=== PATIENT | male | born 1950 | race Caucasian/White ===

== ENCOUNTER 2017-08-02 20:54 | Inpatient (IN) | payer MEDICARE, OTHER ==
[~2017-08-02] VITALS: Ht 182.9 cm; Wt 133.5 kg
--- NOTE | ~2017-08-02 | CN ---
Consultation Report [facility] [address] [place]. [address] NAME: BERENICE CASTAÑEDA : 48 STATUS : ADM IN [facility]#: [id number] AGE: 66 ADM/REG DATE : 08/03/17 MR#: [id number] REPORT SERV DATE: 08/03/17 DICTATED BY: LILLIAM JOSEPH DATE: 08/03/17 REPORT STATUS : Draft TRANSCRIBED BY: MODL DATE: 08/03/17 CARDIOLOGY CONSULT DATE OF CONSULTATION: REFERRING REASON: Sepsis and elevated troponin. HISTORY OF PRESENT ILLNESS: This is a pleasant 66-year-old obese white gentleman, who was transferred yesterday from [facility], where he has been one day for abdominal discomfort, anorexia, and one week lasting fever and chills. He was found to be hypotensive with acute kidney injury and elevated troponin. He was transferred to IMCU at [facility]. The patient has reported low blood pressure outside. I had the opportunity to interview the patient and his . Reportedly, he has been not feeling well for last two weeks. He has been suffering with chronic abdominal pain and anorexia. He was waiting for cholecystectomy, which was scheduled for yesterday. In the meantime, he ended up at the outside hospital. He was complaining of one week lasting fever, chills, and general malaise. No chest pain. No palpitation or significant dyspnea. He continues to smoke two packs a day. He has underlying COPD. The patient denies any previous cardiac problems. He is however a poor historian. His troponin peaked up to 3.8 last night and now is decreasing to 3.4. Initially, he was in normal sinus rhythm, but he went early this morning to atrial fibrillation with rapid ventricular response. Blood pressure now is 100 to 110 systolic. He has not required pressor. His procalcitonin is elevated up to 1.9. His blood cultures from [place] revealed clusters of gram-positive cocci. Infectious Disease doctor has not seen the patient yet. The patient reportedly has been active until recently. He denied any recent chest pain, palpitation, or syncope. REVIEW OF SYSTEMS: The rest of review of systems negative. PAST MEDICAL HISTORY: 1. COPD. 2. Smoking dependency. 3. History of abdominal aortic repair by Dr. Narvaez in 2014 at [place] for possible rupture. 4. Hypothyroidism, on treatment. 5. Obesity. 6. Remote history of prostate cancer. 7. Chronic right bundle-branch block on electrocardiogram. 8. Chronic abdominal pain with cholelithiasis. ALLERGIES: PENICILLIN AND TERRAMYCIN. Consultation Report [facility] [address] [place]. [address] NAME: BERENICE CASTAÑEDA : 48 STATUS : ADM IN PAT#: [id number] AGE: 66 ADM/REG DATE : 08/03/17 MR#: [id number] REPORT SERV DATE: 08/03/17 DICTATED BY: LILLIAM JOSEPH DATE: 08/03/17 REPORT STATUS : Draft TRANSCRIBED BY: GEORGES DATE: 08/03/17 HOME MEDICATIONS: Albuterol, aspirin 325 mg once a day, benazepril 20 mg once a day, Coenzyme Q10, Lasix 40 mg once a day, Synthroid 50 mcg once a day, and fish oil. 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 He is . He has been smoking many years, currently two packs a day. Denies drinking alcohol daily or using street drugs. FAMILY HISTORY: Remarkable for his brother having DC in his late 60s. PHYSICAL EXAMINATION: GENERAL: No acute distress. VITAL SIGNS: Blood pressure is 110/60, heart rate 119, irregularly irregular, atrial fibrillation. HEENT: Pupils reactive to light and accommodation. Moist mucosa membrane. NECK: No JVD. Normal carotid upstroke. No carotid bruits. LUNGS: Decreased breath sounds, but no crackles. COR: Normal S1, S2. No S3 or S4. No significant rub or murmurs. Soft systolic murmur, 2/6 at the right upper sternal border noted. ABDOMEN: Obese, distended with some mild palpation to tenderness in the right upper quadrant. Lower extremity trace edema around the ankle with decreased pedal pulses bilaterally. EXT: No edema. Pedal pulses strong and equal bilaterally. SKIN: Warm with normal turgor. MS: No kyphosis. NEURO/PSY: Alert and oriented. Nonfocal. DATA: CBC remarkable for hemoglobin 10.9 with MCV 88. White blood cell count is 8000 after treatment with antibiotics at outside institution. Potassium was 3.3 with sodium increasing from 129 to 130, creatinine 1.6, BUN of 49, procalcitonin elevated 1.9. Troponin peaked at 3.8, decreasing to 3.4 currently. Initial electrocardiogram revealed normal sinus rhythm with occasional PVC and signs of LVH and incomplete right bundle-branch block. Earlier today, he went to atrial fibrillation with rapid ventricular response and echocardiogram today revealed mild decrease in systolic function, EF 45% with small inferior hypokinesis, mild LVH, and dilated left atrium, moderate aortic valve stenosis also. Elevated right atrial and central venous pressure are also noted. ASSESSMENT AND PLAN: 1. Gram-positive cocci bacteremia with fever, chills, hypotension, sepsis. 2. Demand ischemia/type 2 myocardial infarction. 3. Paroxysmal atrial fibrillation. 4. Chronic obstructive pulmonary disease. 5. Hyponatremia. 6. Hypokalemia. 7. Anemia. We will ask infectious disease doctors to see him for evaluation of his sepsis and for Consultation Report [address] [place]. [address] NAME: BERENICE CASTAÑEDA : 48 STATUS : ADM IN [facility]#: [id number] AGE: 66 ADM/REG DATE : 08/03/17 MR#: [id number] REPORT SERV DATE: 08/03/17 DICTATED BY: LILLIAM JOSEPH DATE: 08/03/17 REPORT STATUS : Draft TRANSCRIBED BY: GEORGES DATE: 08/03/17 appropriate treatment. He currently denies any chest pain. We will start him on aspirin, low dose of beta oh when his blood pressure will tolerate it and statin. His electrolytes will need to be replaced. When he will be stable, we will proceed with coronary arteriogram while his blood pressure now is decreasing. We will start him on intravenous amiodarone in the attempt to convert him back to sinus rhythm. He is already on intravenous heparin. We will follow the patient with you. OJL/GEORGES Lilliam Joseph M.D. / [id number] CC: Be Fuller M.D.
--- NOTE | ~2017-08-02 | DS ---
Discharge Summary [facility] [facility] [place]. [address] NAME: BERENICE CASTAÑEDA : 48 STATUS : ADM IN [facility]#: [id number] AGE: 66 ADM/REG DATE : 08/03/17 MR#: [id number] REPORT SERV DATE: 08/09/17 DICTATED BY: BÁRBARA BELLA DATE: 08/08/17 REPORT STATUS : Draft TRANSCRIBED BY: MODL DATE: 08/08/17 ADMISSION DATE: 08/03/2017 DISCHARGE DATE: REASON FOR ADMISSION: Sepsis, status post septic shock. SECONDARY DIAGNOSES: Acute kidney injury demand ischemia, coronary artery disease, encephalopathy, atrial fibrillation, RVR, and chronic obstructive pulmonary disease. PRESENT ILLNESS: Please see Dr. Tenorio's dictation from 08/03/2017. HOSPITAL COURSE: Admitted for sepsis. There was a concern for gram-positive cocci in clusters, these were found to be contaminant. Repeat blood cultures were all negative. CT showed no active pneumonia. There was, however, some thickening of the gallbladder wall and some concern about cholecystitis as a source of his sepsis syndrome. He was seen also by Cardiology regarding positive troponin and found to have high-grade stenosis of the ramus intermedius, but no other intervenable lesions and the non-STEMI itself was felt to be from a demand ischemia. DICTATION ENDS HERE JACOBO/GEORGES Bárbara Bella M.D. / [id number] CC: Bárbara Bella M.D.
--- NOTE | ~2017-08-02 | TEE ---
Transesophageal Echocardiogram [facility] [address] [place]. [address] NAME: BERENICE CASTAÑEDA : 48 STATUS : ADM IN [facility]#: [id number] AGE: 66 ADM/REG DATE : 08/03/17 MR#: [id number] REPORT SERV DATE: 08/09/17 DICTATED BY: DATE: REPORT STATUS : Draft TRANSCRIBED BY: MODL DATE: 08/09/17 CHIEF COMPLAINT/REASON FOR STUDY: Atrial fibrillation. Written informed consent obtained. Please see chart for documentation. PROCEDURE: With the assistance of my Anesthesia colleagues, Mr. Castañeda was sedated for the procedure. The transesophageal probe was placed with one attempt without complications. Salient 2D, 3D, spectral and color Doppler imaging was obtained. Following the procedure, the transesophageal probe was withdrawn. There were no complications. 1. The left ventricular systolic function is mildly decreased in a global manner with a visually estimated ejection fraction of 45% to 50%. 2. The right ventricle is normal in size and systolic function. 3. The left atrium is dilated. There was no evidence of left atrial thrombus. 4. The left atrial appendage. Was interrogated at multiple levels and depths. There was no evidence of left atrial appendage thrombus. 5. The right atrium was normal in size. There was no evidence of right atrial thrombus. 6. The mitral valve was degenerated. There was mitral annular calcification. There is a 1.3 cm mobile echodensity on P3 leaflet consistent with infective endocarditis. There was associated mild mitral regurgitation noted. 7. The tricuspid valve was normal and open normally. There was mild tricuspid valvular regurgitation. 8. The pulmonary valve was structurally normal. There was no evidence of significant pulmonary valvular regurgitation. 9. 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 There was at least mild aortic valve stenosis. The gradient was not measured. There are small mobile echo densities on the aortic valve likely consistent with infective endocarditis. 10.There was a large left-sided pleural effusion noted. 11.The thoracic aorta was interrogated which demonstrated severe atherosclerotic plaque in the ascending aorta and aortic arch. IMPRESSION: 1. Mildly decreased left ventricular systolic function with a visually estimated ejection fraction of 45% to 50%. 2. Mitral valve, pechanga mitral valve endocarditis. 3. Aortic valve homograft with likely endocarditis and at least mild aortic stenosis. There was mild aortic valve regurgitation. 4. Large pleural effusion. 5. Severe atherosclerotic plaquing of the thoracic aorta. These findings were discussed with the referring physician, Dr. Johanna Eli at the bedside. GIOVANY/GEORGES Anila Kothari Transesophageal Echocardiogram [address] [address] NAME: BERENICE CASTAÑEDA : 48 STATUS : ADM IN [facility]#: [id number] AGE: 66 ADM/REG DATE : 08/03/17 MR#: [id number] REPORT SERV DATE: 08/09/17 DICTATED BY: DATE: REPORT STATUS : Draft TRANSCRIBED BY: GEORGES DATE: 08/09/17 Jeanne Cat / [id number] CC: Paul Painting M.D.
--- NOTE | ~2017-08-02 | DS ---
Discharge Summary [facility] [address] [place]. 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 Atrial fibrillation. SECONDARY DIAGNOSES: Chronic obstructive pulmonary disease with asthma exacerbation, hypertension, multiple focal strokes due to endocarditis, carotid stenosis, anasarca, chronic cholecystitis. PRESENT ILLNESS: Please see dictation, 08/03/2017. HOSPITAL COURSE: Please see interim summary on 08/07/2017. The patient was not found in fact to not be septic from cholecystitis. His blood culture positivity was actually Staphylococcus lugdunensis while transthoracic echocardiogram was unremarkable. PANKAJ done for further evaluation of the valve and for possible DC cardioversion revealed vegetations on the mitral valve. Further information from [facility] had revealed also the patient had an abnormal CT of the brain. MRI in fact revealed multifocal strokes of varying age. Further workup for that actually revealed a carotid stenosis. The patient meanwhile had actually done little well with his edema. He had diuresed 31 pounds of fluid off a single day and remained negative, that the stasis dermatitis had improved markedly. No further evidence of cellulitis on Ancef therapy. Medications were adjusted and COPD was doing much better as well. The patient actually was ambulating and demanded discharge. We talked with Neurology, Infectious Disease, and with Cardiology, they said that discharge home with the home IV antibiotics may in fact be the best course of action. However, close followup for his multiple issues would be essential. Follow up was arranged with Dr. Esteban in a week and Dr. Narvaez in a month for the carotid stenosis, Dr. Brian in three weeks, and Dr. Eli in four weeks. Eliquis had started, but put on hold due to one of these strokes have been some degree of hemorrhagic conversion. He will restart on 5 mg b.i.d. in a week. He was however, continue daily aspirin, Lipitor 40 at bedtime, amiodarone 200 daily for the atrial fibrillation, Ancef 2 g q.8 hours for 33 additional days, CoQ10, [place]-3 fatty acids, guaifenesin, Synthroid, magnesium, potassium supplements, multivitamin, Toprol-XL, Spiriva, Symbicort, Demadex, prednisone taper, albuterol p.r.n. He was instructed in no uncertain terms not to smoke. Activity otherwise as tolerated. Low salt, low fat, low calorie diet was recommended. Greater than 30 minutes was spent in the care of this patient's discharge planning on discharge day. JACOBO/GEORGES Discharge Summary [address] [address] NAME: BERENICE CASTAÑEDA : 48 STATUS : DIS IN PAT#: [id number] AGE: 66 ADM/REG DATE : 08/03/17 MR#: [id number] REPORT SERV DATE: 08/14/17 DICTATED BY: BÁRBARA BELLA DATE: 08/11/17 REPORT STATUS : Draft TRANSCRIBED BY: GEORGES DATE: 08/11/17 Bárbara Bella M.D. / [id number] CC: Jeanne George M.D. Hal Hill, M.D. Sachin V Phade, M.D. CRAIG STEVEN SWAFFORD, MD
--- NOTE | ~2017-08-02 | HP ---
History And Physical [place] [address] [facility] [place]. [address] NAME: BERENICE CASTAÑEDA : 48 STATUS : ADM IN [facility]#: [id number] AGE: 66 ADM/REG DATE : 08/03/17 MR#: [id number] REPORT SERV DATE: 08/03/17 DICTATED BY: CHASE CAMPBELL DATE: 08/03/17 REPORT STATUS : Draft TRANSCRIBED BY: MODL DATE: 08/03/17 DATE OF ADMISSION: 08/03/2017 CHIEF COMPLAINT: This is a patient I had accepted in transfer from [facility] after speaking with Dr. Esteban there. Briefly, according to Dr. Esteban, the patient had presented there for generalized malaise and loss of appetite. He then went on to have slight mental status changes along with an elevated troponin level initially 0.29 which went on to be 0.89. Subsequently, he started having hypotension, and laboratory data showed a creatinine initially of 2.0 with fluids it went down to 1.7. CT scan of his abdomen and pelvis showed no cholelithiasis, but there was thickening of the gallbladder wall. Chest x-ray was negative. CT of the head was negative. EKG showed sinus bradycardia without any ST-T changes. His procalcitonin by now had become 3.19 and he had a lactate of 8.0. Despite fluid administration the patient continued to be slightly hypotensive and given the fact that his troponin was rising Dr. Esteban felt he needs to be seen by a pharmacist technician or evaluated here as they do not have one there. The patient was accepted in transfer from [facility] to [facility]. Prior to his transfer, his vital signs showed a heart rate of 79, respirations 22 a minute, blood pressure immediately before transfer was 104/55, oxygen saturations were 94% on 2 L, and his temperature was 98.5. At the time of my evaluation here, Mr. Castañeda had some mild encephalopathy, but he was able to answer questions and follow commands. However, he appeared to be quite lethargic. He denied any chest pain or palpitations. He did not have orthopnea. He did not have any cough or any sputum production according to the , and they also denied any hemoptysis, night sweats, or weight loss during the recent past. No history of recent falls or loss of consciousness. They denied any fevers, chills, nausea, vomiting, or diarrhea. No bleeding from anywhere. No other history of recent travel or exposures other than those mentioned above. According to the , the situation has been going on for a couple of months at least and they have been evaluating him for gallbladder disease. He was supposed to get a HIDA scan today while there, but unfortunately he took a turn for the worse. He says in the last two days he has had profound malaise and loss of appetite, and then started having altered mental status and was taken to the hospital there. 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 SOCIAL HISTORY: He does not smoke, drink, or use recreational drugs at this time. FAMILY HISTORY: Noncontributory. MEDICATIONS: His medications at home were reviewed by me in the chart today and reordered by me. REVIEW OF SYSTEMS: As in history of present illness. All other systems were reviewed in detail and are quite History And Physical [address] [address] NAME: BERENICE CASTAÑEDA : 48 STATUS : ADM IN [facility]#: [id number] AGE: 66 ADM/REG DATE : 08/03/17 MR#: [id number] REPORT SERV DATE: 08/03/17 DICTATED BY: CHSAE CAMPBELL DATE: 08/03/17 REPORT STATUS : Draft TRANSCRIBED BY: GEORGES DATE: 08/03/17 unremarkable. PHYSICAL EXAMINATION: GENERAL: This is a pleasant 66-year-old not in any acute distress at this time. HEENT: His head is atraumatic and normocephalic. He is alert, awake, and oriented, but still lethargic and mildly encephalopathic. His pupils were equal, reacting to light and accommodating. External ocular muscles were intact. Membranes were moist and pink. Sclerae are nonicteric. NECK: Supple with no jugular venous distention, lymphadenopathy, or thyromegaly. LUNGS: Clear to auscultation with no wheezes, rubs, or crackles. There was an ejection systolic murmur, otherwise with normal rate and rhythm. ABDOMEN: Soft and nontender. Bowel sounds are present. EXTREMITIES: No cyanosis, clubbing, or edema. NEURO: Grossly intact, although he is mildly encephalopathic. He was able to move all four extremities. VITAL SIGNS: His temperature today upon arrival here was 98.8, pulse 71, respirations 36 a minute and blood pressure was 108/56. Oxygen saturations were 96% on 2 L via nasal cannula. LABORATORY DATA: Laboratory data and other information that accompanied the patient from [facility] was reviewed by me in the chart today. IMPRESSION: 1. Sepsis. 2. Septic shock. 3. Elevated troponin. 4. Elevated bilirubin. 5. Abnormal CT scan of the abdomen and pelvis. 6. Acute kidney injury. 7. Chronic obstructive pulmonary disease. 8. Hypothyroidism. PLAN: We will admit Mr. Castañeda to the Medical Intermediate Care Unit for close monitoring. After cultures are drawn here, we will start him on broad-spectrum IV antibiotics. We will start him on cefepime, gentamicin, and vancomycin. We will check his cortisol level along with fresh CBC, CMP, and procalcitonin and lactate, and start him on hydrocortisone replacement therapy, we may discontinue this based on the results. We will also start him on fluid boluses per sepsis protocol and monitor blood pressures closely. He is holding his own for now and I do not think he needs intravenous pressors at this time, but should his mean arterial pressure drop below 65, we may consider that. We will go ahead and follow serial troponins to rule out acute coronary event, but we will get an echocardiogram and consult Cardiology Service in the morning. This may be as a result of his sepsis or demand ischemia as well. Meanwhile, we will check his TSH and continue replacement therapy at this time. We will also place him on low-molecular weight heparin for DVT prophylaxis while here. Please see today's orders for all the details. I have discussed the above plans with the patient and his . Questions were answered and she is agreeable to the above recommendations. History And Physical [address] [place]. [address] NAME: BERENICE CASTAÑEDA : 48 STATUS : ADM IN [facility]#: [id number] AGE: 66 ADM/REG DATE : 08/03/17 MR#: [id number] REPORT SERV DATE: 08/03/17 DICTATED BY: CHASE CAMPBELL DATE: 08/03/17 REPORT STATUS : Draft TRANSCRIBED BY: MODSam DATE: 08/03/17 Total critical care time spent with the patient and the family was 45 minutes. /GEORGES Chase Campbell M.D. / [id number] CC: Be Fuller M.D.
--- NOTE | ~2017-08-02 | IDS ---
Interim Discharge Summary [facility] [address] [place]. [address] NAME: BERENICE CASTAÑEDA : 48 STATUS : ADM IN [facility]#: [id number] AGE: 66 ADM/REG DATE : 08/03/17 MR#: [id number] REPORT SERV DATE: 08/07/17 DICTATED BY: KAIN TUCKER II DATE: 08/07/17 REPORT STATUS : Draft TRANSCRIBED BY: MODL DATE: 08/07/17 ADMISSION DATE: 08/03/2017 DISCHARGE DATE: DATE OF INTERIM: 08/07/2017. INTERIM DIAGNOSES: 1. Sepsis syndrome, of unclear etiology. 2. Thrombocytopenia secondary to sepsis. 3. Acute kidney injury. 4. Demand ischemia. 5. Atrial fibrillation with rapid ventricular response. 6. Metabolic encephalopathy. 7. Suspicious lung nodules. 8. Morbid obesity. 9. 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 10.Chronic obstructive pulmonary disease. CONSULTANTS: 1. Dr. Vic Brian with Infectious Disease. 2. Dr. Eli, with Cardiology. PROCEDURES: Left heart cath showing diffuse moderate plaquing with no intervenable coronary artery disease. There was a high-grade stenosis of a branch of the ramus intermedius which is too small to intervene upon. Otherwise, no occlusive disease. Low normal EF of 45% to 50%. Borderline [id number] elevated left ventricular end-diastolic pressure of 22 to 24. BRIEF HISTORY OF PRESENT ILLNESS: The patient is a 66-year-old male with the above history who presented to [facility] in transfer from [facility] due to elevated troponin in the setting of sepsis. For detailed history and physical examination, please see Dr. Hill's note from 08/03/2017. HOSPITAL COURSE: Regarding the patient's sepsis syndrome, he had a significant fever and elevated procalcitonin of 3.19 at [facility] with a lactic acid of 8. Here, the patient was placed on cefepime and vancomycin and blood cultures had apparently grown out 2/2 gram-positive cocci in clusters from [facility]. Dr. Brian was involved and followed up the blood cultures for probable contaminants. CT of the chest did not show any evidence of pneumonia or infection. It did show a 14 mm and 7 mm pulmonary nodule that were concerning and recommendation for possible followup PET as an outpatient was recommended by Radiology. CT at [facility] of the abdomen and pelvis apparently showed no cholelithiasis, but some thickening of the gallbladder wall. LFTs here have been fairly unremarkable, and the patient has no symptoms of abdominal discomfort. His sepsis syndrome has completely resolved, and Dr. Brian has taken off the vancomycin and has recommended IV antibiotics through tomorrow at which point he can switch to oral therapy under the presumption of treating cholecystitis. A HIDA scan is deferred at this time as the patient was already Interim Discharge Summary [address] [address] NAME: BERENICE CASTAÑEDA : 48 STATUS : ADM IN PAT#: [id number] AGE: 66 ADM/REG DATE : 08/03/17 MR#: [id number] REPORT SERV DATE: 08/07/17 DICTATED BY: KAIN TUCKER II DATE: 08/07/17 REPORT STATUS : Draft TRANSCRIBED BY: GEORGES DATE: 08/07/17 previously scheduled to get a cholecystectomy by a surgeon in [facility], so we will likely let the patient go tomorrow with oral antibiotics and follow up in [facility] for lap alecia. Regarding the patient's demand ischemia, his troponin actually went up to 3.86. The patient was placed on heparin drip. An echocardiogram showed mildly decreased LVEF of 45% to 50%, small inferior basilar wall motion abnormality, mild left ventricular hypertrophy, dilated left atrium, and mild aortic stenosis. Over the weekend, the patient improved and today the patient underwent cardiac cath with the above-mentioned results. Recommendations are medical management. Otherwise, the patient also had an HEIDI with a creatinine 1.66 and currently has come down to 0.76. The patient was in atrial fibrillation with RVR in the IMCU initially and was placed on amiodarone drip, currently down to metoprolol and amiodarone orally. He had some likely sepsis-related thrombocytopenia with a platelet count of 67 on admission which has since come up to 241. Overall, the patient appears quite stable and hopefully will be ready for discharge tomorrow if okay with all other consultants and antibiotics arranged. Of note, one of my colleagues will take over starting tomorrow. LEYLA Kain Tucker II, MD / [id number] CC: Kain Tucker II, MD
--- NOTE | ~2017-08-02 | CN ---
Consultation Report [facility] [address] [place]. [address] NAME: BERENICE CASTAÑEDA : 48 STATUS : ADM IN [facility]#: [id number] AGE: 66 ADM/REG DATE : 08/03/17 MR#: [id number] REPORT SERV DATE: 08/08/17 DICTATED BY: PAULA KABA DATE: 08/08/17 REPORT STATUS : Draft TRANSCRIBED BY: MODL DATE: 08/08/17 CONSULTATION DATE OF CONSULTATION: 08/08/2017 REASON FOR CONSULTATION: Gallbladder as possible source of sepsis. HISTORY OF PRESENT ILLNESS: Mr. Castañeda is a 66-year-old gentleman who was evaluated by my partner, Dr. Jin Esteban in [facility] for cholelithiasis about one month ago. While he did have stones, there was no evidence of cholecystitis. No wall thickening on the ultrasound and white counts were always normal. The patient was transferred to [facility] due to concern of sepsis and hypotension, and he had some cardiac symptoms. He was found during hospitalization on a cardiac cath to have demand ischemia, but no interventionable lesion, and therefore, was started on medical management being Eliquis. Please see Dr. Tenorio's dictation from 08/03/2017 for past medical history, past surgical history, allergies, medications, social history, family history. REVIEW OF SYSTEMS: As stated in the HPI, otherwise, negative. PHYSICAL EXAMINATION: VITAL SIGNS: Temperature 98.0, heart rate 101, blood pressure 124/63. GENERAL: Alert, obese male, in no acute distress. HEENT: Normocephalic, atraumatic. EOMI. PERRLA. Oropharynx is clear. NECK: Supple. No lymphadenopathy. Clear to auscultation bilaterally. HEART: Distant, but no murmur, gallop, or rub. ABDOMEN: Obese, nontender throughout. NEUROLOGIC: Moves all extremities well. Cranial nerves 2 through 12 intact. No rashes. LABORATORY DATA: Currently, his white count is 9.4, H and H 9.9 and 29.1, platelets of 265, electrolytes within normal range with a creatinine of 0.79. Please see Dr. Esteban's dictations for outpatient ultrasound. ASSESSMENT: Cholelithiasis without evidence of cholecystitis with demand ischemia. PLAN: Based on these findings, the patient is not a surgical candidate. I would consider a cholecystostomy tube in the future should he have signs of cholecystitis, which would be an elevated white count, fever, and either thickening of the gallbladder wall or pericholecystic fluid on ultrasound. I will communicate this with my partner, Dr. Esteban. He will be happy to see the patient in followup and I am in agreement with discharge tomorrow. It is my pleasure participating in the care of your patient. Consultation Report [address] [address] NAME: BERENICE CASTAÑEDA : 48 STATUS : ADM IN [facility]#: [id number] AGE: 66 ADM/REG DATE : 08/03/17 MR#: [id number] REPORT SERV DATE: 08/08/17 DICTATED BY: PAULA KABA DATE: 08/08/17 REPORT STATUS : Draft TRANSCRIBED BY: GEORGES DATE: 08/08/17 KARISSA/GEORGES Paula Kaba M.D. / [id number] CC: Jeanne George MD
--- NOTE | ~2017-08-02 | CN ---
Consultation Report [facility] [address] [place]. [address] NAME: BERENICE CASTAÑEDA : 48 STATUS : ADM IN PAT#: [id number] AGE: 66 ADM/REG DATE : 08/03/17 MR#: [id number] REPORT SERV DATE: 08/05/17 DICTATED BY: SELVIN BRIAN DATE: 08/04/17 REPORT STATUS : Draft TRANSCRIBED BY: MODL DATE: 08/04/17 INFECTIOUS DISEASE CONSULTATION DATE OF CONSULTATION: 08/04/2017 REASON FOR CONSULTATION: Possible sepsis and positive blood cultures. HISTORY OF PRESENT ILLNESS: This is a 66-year-old man with a past medical history of obesity; ruptured aneurysm, status post an aortic endograft repair by Dr. Narvaez; COPD; and hypothyroidism. He also has a remote history of prostate cancer and chronic tobacco abuse. The abdominal aortic repair was in 2014. Apparently for some years, he says he has had episodic right upper quadrant abdominal pain. These symptoms have worsened over the past many months and he had undergone evaluation as an outpatient including by a surgeon for a possible chronic cholecystitis. He had been seen 1 month ago and scheduled for a right upper quadrant ultrasound and possible laparoscopic cholecystectomy. However, over the past week or so, he had developed just some episodic fevers and chills, and confusion and just generally was feeling poorly. He had an ultrasound which from the records we have, apparently showed no evidence of any acute abnormalities of the gallbladder. Admission was discussed, but the patient declined. He continued to feel poorly though, and then was brought back to the hospital the following day and a CT scan of the abdomen was performed without IV contrast, which again showed no acute findings and specifically the gallbladder was unremarkable. He does have nephrolithiasis. Initial workup on August 02 also showed a normal white blood cell count, creatinine of 1.9, and bilirubin of 1.3. Blood cultures were done. He was started on antibiotics with Levaquin and Flagyl. He developed worsening creatinine up to 2.0 and had a bilirubin of 1.7. Blood cultures returned positive for gram-positive cocci in clusters, and because of the renal issues and the positive blood cultures, he was transferred here on August 03 for further evaluation. He has had no fever here, although did receive some steroids. His white blood cell count has been normal. His procalcitonin on arrival here was 1.98. The patient was started on antibiotics with vancomycin and cefepime. He underwent evaluation by Cardiology also for elevated troponins. He underwent transthoracic echocardiogram, which was a technically difficult study and showed ejection fraction of 45% to 50%, and small inferior basal wall motion abnormality and moderate aortic stenosis. His troponin levels have come down. He has not required pressors. He is more alert. At present, he denies any pain, nausea, vomiting, chest pain, or shortness of breath. His blood cultures have been identified as coagulase-negative Staph with final sensitivity and specific species identification pending at the [facility] lab. His renal function has improved with creatinine down to 1.16. PAST MEDICAL HISTORY: As outlined above. Otherwise, unremarkable. ALLERGIES: INCLUDE PENICILLIN, WHICH IS SAID TO CAUSE SWELLING. PRESENT MEDICATIONS: In addition to the antibiotics, include aspirin, coenzyme Q, Solu- Consultation Report [place] [id number] [place]. [address] NAME: BERENICE CASTAÑEDA : 48 STATUS : ADM IN [facility]#: [id number] AGE: 66 ADM/REG DATE : 08/03/17 MR#: [id number] REPORT SERV DATE: 08/05/17 DICTATED BY: SELVIN BRIAN DATE: 08/04/17 REPORT STATUS : Draft TRANSCRIBED BY: GEORGES DATE: 08/04/17 Cortef 50 mg b.i.d., Synthroid, Lopressor, multivitamins, and amiodarone. SOCIAL HISTORY: Long-term smoker. Non-drinker. 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 Lives with his . FAMILY HISTORY: Notable for coronary artery disease. REVIEW OF SYSTEMS: As outlined above. The rest of the 10-point review of systems is negative. PHYSICAL EXAMINATION: VITAL SIGNS: The patient weighs 139 kg. He is afebrile. Blood pressure 126/65. Pulse of 83, it was as high as 118. Respiratory rate 16 to 18, it was as high as 36. Oxygen saturation 98% on 2 L. GENERAL: He is alert, somewhat lethargic, but cooperative and answers questions appropriately, but somewhat slowly. HEAD AND NECK: Extraocular movements are intact. Conjunctivae are normal. No petechiae. The oral cavity is clear without thrush. NECK: Supple. LUNGS: Clear to auscultation. CARDIAC: Distant heart sounds. No murmur, gallop, or rub. ABDOMEN: Obese, soft, nontender throughout. EXTREMITIES: He has venous stasis changes in the lower legs without evidence of cellulitis. The patient has a PICC line in the right upper extremity. SKIN: Without rash. LABORATORY STUDIES: White blood cell count 7.6, hemoglobin 10.3, and platelets 91,000. Platelet count on admission to [facility] was 65,000, procalcitonin now is 0.80, creatinine 1.16, and albumin 2.1. Liver function tests are normal. Microbiology studies, repeat blood cultures here are negative. Urinalysis shows no signs of infection. Urine Legionella pneumococcal antigens are negative. CT scan of the chest without IV contrast shows no signs of pneumonia. The patient also had a CT scan of the brain at [facility] without IV contrast without acute changes. CT scan of the abdomen and ultrasound without IV contrast also showed no acute changes. He does have diverticulosis. The aneurysm of the aorta with a stent and iliac stents were noted. He does have an umbilical hernia and nephrolithiasis. IMPRESSION: Etiology of the patient's illness is unclear. The blood cultures though that are growing coagulase-negative staph are most likely contaminants. Must consider the possibility that he may have been developing acute on chronic cholecystitis. However, the radiologic studies are not very impressive. His bilirubin was mildly elevated at [facility], and it is now normalized. The patient did have an elevated procalcitonin of Consultation Report [address] [place]. [address] NAME: BERENICE CASTAÑEDA : 48 STATUS : ADM IN [facility]#: [id number] AGE: 66 ADM/REG DATE : 08/03/17 MR#: [id number] REPORT SERV DATE: 08/05/17 DICTATED BY: SELVIN BRIAN DATE: 08/04/17 REPORT STATUS : Draft TRANSCRIBED BY: MODSam DATE: 08/04/17 1.98 upon transfer here and this does suggest a bacterial infection and possible bacterial sepsis. PLAN: 1. We will continue cefepime for now to continue coverage of cholecystitis. We will discontinue the vancomycin. 2. Follow up on the final blood culture results tomorrow. 3. Reassess further antibiotic therapy tomorrow. YADY/GEORGES Selvin Brian M.D. / [id number] CC: Be Fuller M.D.
[2017-08-03] MEDS ORDERED: L80 PO ×2 (00:29→00:39)
[2017-08-03] MEDS ORDERED: LEVOTHYROXIN150 MCG PO (00:29)
[2017-08-03] MEDS ORDERED: LOTE20 PO ×2 (00:29→00:38)
[2017-08-03] MEDS ORDERED: VENTOLIN HFA INH ×2 (00:29→00:40)
[2017-08-03] MEDS ORDERED: COQ-10200 MG PO (00:30)
[2017-08-03] MEDS ORDERED: FISH-EPA1000 MG PO ×2 (00:30→00:42)
[2017-08-03] MEDS ORDERED: ASA5GR PO (00:30)
[2017-08-03] MEDS ORDERED: MULTIPLE VIT PO (00:31)
[2017-08-03] MEDS ORDERED: MULTIPLE VIT (00:31)
[2017-08-03] MEDS ORDERED: L40 PO (00:39)
[2017-08-03] MEDS ORDERED: SYN.05 PO (00:39)
[2017-08-03] MEDS ORDERED: ASABAYER PO (00:40)
[2017-08-03] MEDS ORDERED: CO Q-10100 MG PO (00:41)
[2017-08-03] MEDS ORDERED: MULTIVIT/MIN PO (00:42)
[2017-08-03 01:30] LABS: HEMATOCRIT 28.8 % (40.0-51.0); HEMOGLOBIN 10.9 g/dL (13.6-17.8); MEAN CORPUS HGB CONC 37.8 g/dL (32.0-36.0); MEAN CORPUSCULAR HEMOGLOB 33.4 pg (26.0-34.0); MEAN CORPUSCULAR VOLUME 88.3 fL (80-100); MEAN PLATELET VOLUME 12.3 fL (9.2-13.0); PLATELET COUNT 68 10/3/uL (150-400); RBC DISTRIBUTION WIDTH 13.1 % (12.0-16.0); RED CELL COUNT 3.26 10/6/uL (4.7-6.1); WHITE BLOOD CELLS 7.8 10/3/uL (4.5-10.5)
[2017-08-03 01:31] LABS: MANUAL DIFF YES %
[2017-08-03 01:32] LABS: ALLENS TEST Pos; BE (BASE EXCESS) -1.7 MEQ/L (0 +/- 2.5); CARBOXYHEMOGLOBIN 1.2 % (0-3); HCO3 (ACTUAL BICARBONATE) 21.6 MEQ/L (23-27); HEMOBLOGIN CONTENT 11.2 G/DL (14-18); INSTRUMENT SERIAL # 8083; METHEMOGLOBIN 0.3 % (0-3); O2 CONTENT 14.3 VOL% (18-24); OPERATOR ID 14661; PCO2 (CO2 TENSION) 32 MMHG (35-45); PO2 (O2 TENSION) 67 MMHG (79-93); SAMPLE Arterial; pH 7.45 (7.37-7.43)
[2017-08-03 01:51] LABS: A/G RATIO 0.8 (0.7-1.9); ALBUMIN 2.5 G/DL (3.5-5.0); ALKALINE PHOSPHATASE 66 U/L (45-117); BUN (BLOOD UREA NITROGEN) 49 MG/DL (6-23); CALCIUM, SERUM 7.9 MG/DL (8.5-10.4); CHLORIDE, SERUM 95 MMOL/L (96-112); CO2 (CARBON DIOXIDE) 24 MMOL/L (24-34); CREATININE 1.66 MG/DL (0.70-1.30); GFR AFRICAN AMERICAN 49 ML/MIN (>=60); GFR NON AFRICAN AMERICAN 42 ML/MIN (>=60); GLOBULIN 3.2 G/DL (2.5-4.1); GLUCOSE, SERUM 109 MG/DL (60-99); POTASSIUM, SERUM 3.3 MMOL/L (3.5-5.3); SGOT(AST) 58 U/L (5-40); SGPT(ALT) 42 U/L (5-65); SODIUM, SERUM 129 MMOL/L (135-148); TOTAL BILIRUBIN 1.2 MG/DL (0-1.2); TOTAL PROTEIN 5.7 G/DL (6.0-8.5)
[2017-08-03 01:52] LABS: TROPONIN I 3.86 NG/ML (<0.05)
[2017-08-03 01:53] LABS: BAND NEUTROPHILS 6 %; EOSINOPHILS 1 %; EOSINOPHILS ABSOLUTE (CALC) 0.08 10/3/uL (0.0-0.53); HELMET CELLS OCC (0-2/OIF); LYMPHOCYTES 10 %; LYMPHOCYTES ABSOLUTE (CALC) 0.78 10/3/uL (0.67-4.30); MONOCYTES 8 %; MONOCYTES ABSOLUTE (CALC) 0.62 10/3/uL (0.21-1.20); NEUTROPHILS ABSOLUTE (CALC) 6.32 10/3/uL (2.02-8.40); PLATELET ESTIMATE DEC (ADEQUATE); SEGMENTED NEUTROPHIL (0) 75 %; TOTAL NUCLEATED CELLS 100; TOXIC GRANULATION SLT
[2017-08-03 02:16] LABS: PROCALCITONIN 1.98 ng/mL (<0.5)
[2017-08-03 02:28] LABS: INTERNATIONAL NORMAL RATI 1.3 UNITS (-); PARTIAL THROMBO TIME 45.1 SEC (22.5-37.2); PROTIME (NOT ORD) 15.9 SEC (12.0-14.5)
[2017-08-03 05:29] LABS: BASOPHILS 0.1 %; BASOPHILS ABSOLUTE 0.01 10/3/uL (0.0-0.16); EOSINOPHILS 0.4 %; EOSINOPHILS ABSOLUTE 0.03 10/3/uL (0.0-0.53); HEMATOCRIT 28.8 % (40.0-51.0); HEMOGLOBIN 10.6 g/dL (13.6-17.8); IMMATURE GRANULOCYTES 0.4 %; IMMATURE GRANULOCYTES ABSOLUTE 0.03 10/3/uL (0.0-0.11); LYMPHOCYTES 4.8 %; LYMPHOCYTES ABSOLUTE 0.38 10/3/uL (0.67-4.30); MEAN CORPUS HGB CONC 36.8 g/dL (32.0-36.0); MEAN CORPUSCULAR HEMOGLOB 32.7 pg (26.0-34.0); MEAN CORPUSCULAR VOLUME 88.9 fL (80-100); MEAN PLATELET VOLUME 12.4 fL (9.2-13.0); MONOCYTES ABSOLUTE 1.03 10/3/uL (0.21-1.20); NEUTROPHILS 81.3 %; NEUTROPHILS ABSOLUTE 6.47 10/3/uL (2.02-8.40); PLATELET COUNT 67 10/3/uL (150-400); RBC DISTRIBUTION WIDTH 13.2 % (12.0-16.0); RED CELL COUNT 3.24 10/6/uL (4.7-6.1)
[2017-08-03 05:30] LABS: MANUAL DIFF NO %
[2017-08-03 05:48] LABS: A/G RATIO 0.7 (0.7-1.9); ALBUMIN 2.3 G/DL (3.5-5.0); ALKALINE PHOSPHATASE 61 U/L (45-117); BUN (BLOOD UREA NITROGEN) 43 MG/DL (6-23); CHLORIDE, SERUM 99 MMOL/L (96-112); CO2 (CARBON DIOXIDE) 23 MMOL/L (24-34); CREATININE 1.38 MG/DL (0.70-1.30); GFR AFRICAN AMERICAN 61 ML/MIN (>=60); GFR NON AFRICAN AMERICAN 53 ML/MIN (>=60); GLOBULIN 3.3 G/DL (2.5-4.1); GLUCOSE, SERUM 125 MG/DL (60-99); PHOSPHORUS, SERUM 3.5 MG/DL (2.5-4.5); POTASSIUM, SERUM 3.6 MMOL/L (3.5-5.3); SGOT(AST) 57 U/L (5-40); SGPT(ALT) 40 U/L (5-65); SODIUM, SERUM 130 MMOL/L (135-148); TOTAL BILIRUBIN 1.1 MG/DL (0-1.2); TOTAL PROTEIN 5.6 G/DL (6.0-8.5); ULTRASENSITIVE TSH 0.564 MCIU/ML (0.358-3.740)
[2017-08-03 05:52] LABS: PLATELET ESTIMATE DEC (ADEQUATE); POLYCHROMASIA 1+ (2-5/OIF) (0-1/OIF)
[2017-08-03 14:35] LABS: ASCORBIC ACID (UR NOT ORDER) 40 (NEG); BILIRUBIN, URINE NEGATIVE (NEG); KETONE, URINE NEGATIVE (NEG); LEUKOCYTE ESTERASE(NOT OR TRACE (NEG); WBC (NOT ORDERED) (RFLEX) 8 (0-5)
[2017-08-03 14:36] LABS: ASCORBIC ACID (UR NOT ORDER) 20 (NEG); BILIRUBIN, URINE NEGATIVE (NEG); KETONE, URINE NEGATIVE (NEG); LEUKOCYTE ESTERASE(NOT OR NEG (NEG); WBC (NOT ORDERED) (RFLEX) 1 (0-5)
[2017-08-04 04:47] LABS: PARTIAL THROMBO TIME 82.9 SEC (22.5-37.2)
[2017-08-04 04:55] LABS: A/G RATIO 0.7 (0.7-1.9); ALBUMIN 2.1 G/DL (3.5-5.0); ALKALINE PHOSPHATASE 63 U/L (45-117); CALCIUM, SERUM 7.6 MG/DL (8.5-10.4); CHLORIDE, SERUM 105 MMOL/L (96-112); CHOL/HDL RATIO(NOT ORDER) 7.9 (0-5); CHOLESTEROL 119 MG/DL (< 200); CO2 (CARBON DIOXIDE) 24 MMOL/L (24-34); CREATININE 1.16 MG/DL (0.70-1.30); GFR AFRICAN AMERICAN 75 ML/MIN (>=60); GFR NON AFRICAN AMERICAN 65 ML/MIN (>=60); GLOBULIN 3.2 G/DL (2.5-4.1); HDL CHOLESTEROL 15 MG/DL (> 39); LDL CHOLESTEROL 62 MG/DL (< 130); NON-HDL CHOLESTEROL 104 MG/DL (< 160); POTASSIUM, SERUM 3.6 MMOL/L (3.5-5.3); SGOT(AST) 44 U/L (5-40); SGPT(ALT) 37 U/L (5-65); TOTAL BILIRUBIN 0.9 MG/DL (0-1.2); TOTAL PROTEIN 5.3 G/DL (6.0-8.5); TRIGLYCERIDE 213 MG/DL (< 150)
[2017-08-04 04:58] LABS: BUN (BLOOD UREA NITROGEN) 32 MG/DL (6-23); GLUCOSE, SERUM 153 MG/DL (60-99); SODIUM, SERUM 137 MMOL/L (135-148)
[2017-08-04 05:02] LABS: BASOPHILS 0.3 %; BASOPHILS ABSOLUTE 0.02 10/3/uL (0.0-0.16); EOSINOPHILS 0.8 %; EOSINOPHILS ABSOLUTE 0.06 10/3/uL (0.0-0.53); HEMOGLOBIN 10.3 g/dL (13.6-17.8); IMMATURE GRANULOCYTES 0.5 %; IMMATURE GRANULOCYTES ABSOLUTE 0.04 10/3/uL (0.0-0.11); LYMPHOCYTES 6.1 %; LYMPHOCYTES ABSOLUTE 0.46 10/3/uL (0.67-4.30); MEAN CORPUS HGB CONC 36.8 g/dL (32.0-36.0); MEAN CORPUSCULAR HEMOGLOB 33.4 pg (26.0-34.0); MEAN CORPUSCULAR VOLUME 90.9 fL (80-100); MEAN PLATELET VOLUME 11.8 fL (9.2-13.0); MONOCYTES 12.3 %; MONOCYTES ABSOLUTE 0.93 10/3/uL (0.21-1.20); NEUTROPHILS ABSOLUTE 6.08 10/3/uL (2.02-8.40); RBC DISTRIBUTION WIDTH 13.4 % (12.0-16.0); RED CELL COUNT 3.08 10/6/uL (4.7-6.1); WHITE BLOOD CELLS 7.6 10/3/uL (4.5-10.5)
[2017-08-04 05:03] LABS: MANUAL DIFF NO %; PLATELET COUNT 91 10/3/uL (150-400)
[2017-08-04 12:25] LABS: POTASSIUM, SERUM 3.8 MMOL/L (3.5-5.3)
[2017-08-04 12:26] LABS: TROPONIN I 1.39 NG/ML (<0.05)
[2017-08-05 04:38] LABS: BASOPHILS 0.3 %; BASOPHILS ABSOLUTE 0.03 10/3/uL (0.0-0.16); EOSINOPHILS ABSOLUTE 0.19 10/3/uL (0.0-0.53); HEMATOCRIT 30.2 % (40.0-51.0); HEMOGLOBIN 10.8 g/dL (13.6-17.8); IMMATURE GRANULOCYTES 1.5 %; IMMATURE GRANULOCYTES ABSOLUTE 0.15 10/3/uL (0.0-0.11); LYMPHOCYTES 8.2 %; MEAN CORPUS HGB CONC 35.8 g/dL (32.0-36.0); MEAN CORPUSCULAR HEMOGLOB 33.2 pg (26.0-34.0); MEAN CORPUSCULAR VOLUME 92.9 fL (80-100); MONOCYTES 8.3 %; MONOCYTES ABSOLUTE 0.81 10/3/uL (0.21-1.20); NEUTROPHILS 79.7 %; NEUTROPHILS ABSOLUTE 7.74 10/3/uL (2.02-8.40); RBC DISTRIBUTION WIDTH 13.5 % (12.0-16.0); RED CELL COUNT 3.25 10/6/uL (4.7-6.1); WHITE BLOOD CELLS 9.7 10/3/uL (4.5-10.5)
[2017-08-05 04:39] LABS: MANUAL DIFF NO %; PLATELET COUNT 133 10/3/uL (150-400)
[2017-08-05 04:54] LABS: A/G RATIO 0.6 (0.7-1.9); ALKALINE PHOSPHATASE 63 U/L (45-117); CALCIUM, SERUM 7.9 MG/DL (8.5-10.4); CHLORIDE, SERUM 106 MMOL/L (96-112); CO2 (CARBON DIOXIDE) 24 MMOL/L (24-34); CREATININE 0.86 MG/DL (0.70-1.30); GFR AFRICAN AMERICAN 104 ML/MIN (>=60); GFR NON AFRICAN AMERICAN 90 ML/MIN (>=60); GLOBULIN 3.6 G/DL (2.5-4.1); GLUCOSE, SERUM 133 MG/DL (60-99); SGOT(AST) 39 U/L (5-40); SGPT(ALT) 42 U/L (5-65); SODIUM, SERUM 138 MMOL/L (135-148); TOTAL BILIRUBIN 0.9 MG/DL (0-1.2); TOTAL PROTEIN 5.6 G/DL (6.0-8.5)
[2017-08-05 04:55] LABS: BUN (BLOOD UREA NITROGEN) 18 MG/DL (6-23)
[2017-08-06 01:16] LABS: BASOPHILS 0.3 %; BASOPHILS ABSOLUTE 0.03 10/3/uL (0.0-0.16); HEMATOCRIT 28.8 % (40.0-51.0); HEMOGLOBIN 10.3 g/dL (13.6-17.8); LYMPHOCYTES 7.1 %; LYMPHOCYTES ABSOLUTE 0.72 10/3/uL (0.67-4.30); MEAN CORPUS HGB CONC 35.8 g/dL (32.0-36.0); MEAN CORPUSCULAR HEMOGLOB 33.4 pg (26.0-34.0); MEAN CORPUSCULAR VOLUME 93.5 fL (80-100); MEAN PLATELET VOLUME 10.3 fL (9.2-13.0); MONOCYTES 6.9 %; NEUTROPHILS 81.7 %; NEUTROPHILS ABSOLUTE 8.31 10/3/uL (2.02-8.40); RBC DISTRIBUTION WIDTH 13.6 % (12.0-16.0); RED CELL COUNT 3.08 10/6/uL (4.7-6.1); WHITE BLOOD CELLS 10.2 10/3/uL (4.5-10.5)
[2017-08-06 01:17] LABS: MANUAL DIFF NO %; PLATELET COUNT 175 10/3/uL (150-400)
[2017-08-06 01:34] LABS: BUN (BLOOD UREA NITROGEN) 16 MG/DL (6-23); CHLORIDE, SERUM 108 MMOL/L (96-112); CO2 (CARBON DIOXIDE) 23 MMOL/L (24-34); CREATININE 0.76 MG/DL (0.70-1.30); GFR AFRICAN AMERICAN 109 ML/MIN (>=60); GFR NON AFRICAN AMERICAN 94 ML/MIN (>=60); GLUCOSE, SERUM 146 MG/DL (60-99); POTASSIUM, SERUM 4.1 MMOL/L (3.5-5.3); SODIUM, SERUM 140 MMOL/L (135-148)
[2017-08-07 06:25] LABS: HEMATOCRIT 28.7 % (40.0-51.0); MEAN CORPUS HGB CONC 34.8 g/dL (32.0-36.0); MEAN CORPUSCULAR HEMOGLOB 33.4 pg (26.0-34.0); MEAN PLATELET VOLUME 10.1 fL (9.2-13.0); RBC DISTRIBUTION WIDTH 13.7 % (12.0-16.0); RED CELL COUNT 2.99 10/6/uL (4.7-6.1); WHITE BLOOD CELLS 9.7 10/3/uL (4.5-10.5)
[2017-08-07 06:26] LABS: MANUAL DIFF YES %; PLATELET COUNT 241 10/3/uL (150-400)
[2017-08-07 06:35] LABS: BUN (BLOOD UREA NITROGEN) 14 MG/DL (6-23); CALCIUM, SERUM 8.2 MG/DL (8.5-10.4); CHLORIDE, SERUM 108 MMOL/L (96-112); CO2 (CARBON DIOXIDE) 24 MMOL/L (24-34); CREATININE 0.76 MG/DL (0.70-1.30); GFR AFRICAN AMERICAN 109 ML/MIN (>=60); GFR NON AFRICAN AMERICAN 94 ML/MIN (>=60); GLUCOSE, SERUM 109 MG/DL (60-99); SODIUM, SERUM 140 MMOL/L (135-148)
[2017-08-07 06:58] LABS: EOSINOPHILS 1 %; LYMPHOCYTES 14 %; LYMPHOCYTES ABSOLUTE (CALC) 1.36 10/3/uL (0.67-4.30); MONOCYTES 2 %; MONOCYTES ABSOLUTE (CALC) 0.19 10/3/uL (0.21-1.20); NEUTROPHILS ABSOLUTE (CALC) 8.05 10/3/uL (2.02-8.40); PLATELET ESTIMATE ADQ (ADEQUATE); RBC MORPHOLOGY NORM (NORMAL); SEGMENTED NEUTROPHIL (0) 83 %; TOTAL NUCLEATED CELLS 100
[2017-08-08 05:14] LABS: HEMATOCRIT 29.1 % (40.0-51.0); HEMOGLOBIN 9.9 g/dL (13.6-17.8); MEAN CORPUSCULAR HEMOGLOB 32.9 pg (26.0-34.0); MEAN CORPUSCULAR VOLUME 96.7 fL (80-100); MEAN PLATELET VOLUME 9.8 fL (9.2-13.0); PLATELET COUNT 265 10/3/uL (150-400); RBC DISTRIBUTION WIDTH 13.8 % (12.0-16.0); RED CELL COUNT 3.01 10/6/uL (4.7-6.1); WHITE BLOOD CELLS 9.4 10/3/uL (4.5-10.5)
[2017-08-08 05:15] LABS: MANUAL DIFF YES %
[2017-08-08 05:21] LABS: BUN (BLOOD UREA NITROGEN) 14 MG/DL (6-23); CALCIUM, SERUM 8.3 MG/DL (8.5-10.4); CHLORIDE, SERUM 106 MMOL/L (96-112); CO2 (CARBON DIOXIDE) 27 MMOL/L (24-34); CREATININE 0.79 MG/DL (0.70-1.30); GFR AFRICAN AMERICAN 108 ML/MIN (>=60); GFR NON AFRICAN AMERICAN 93 ML/MIN (>=60); GLUCOSE, SERUM 103 MG/DL (60-99); POTASSIUM, SERUM 3.9 MMOL/L (3.5-5.3); SODIUM, SERUM 139 MMOL/L (135-148)
[2017-08-08 05:37] LABS: BAND NEUTROPHILS 6 %; EOSINOPHILS 3 %; EOSINOPHILS ABSOLUTE (CALC) 0.28 10/3/uL (0.0-0.53); IMMATURE GRANS ABSOLUTE (CALC) 0.56 10/3/uL (0.0-0.11); LYMPHOCYTES 3 %; LYMPHOCYTES ABSOLUTE (CALC) 0.28 10/3/uL (0.67-4.30); METAMYELOCYTES 6 %; MONOCYTES 10 %; MONOCYTES ABSOLUTE (CALC) 0.94 10/3/uL (0.21-1.20); NEUTROPHILS ABSOLUTE (CALC) 7.33 10/3/uL (2.02-8.40); SEGMENTED NEUTROPHIL (0) 72 %; TOTAL NUCLEATED CELLS 100
[2017-08-08 05:38] LABS: PLATELET ESTIMATE ADQ (ADEQUATE); RBC MORPHOLOGY NORM (NORMAL)
[2017-08-09 04:24] LABS: HEMATOCRIT 30.7 % (40.0-51.0); HEMOGLOBIN 10.6 g/dL (13.6-17.8)
[2017-08-09 04:35] LABS: BUN (BLOOD UREA NITROGEN) 14 MG/DL (6-23); CALCIUM, SERUM 8.6 MG/DL (8.5-10.4); CHLORIDE, SERUM 101 MMOL/L (96-112); CREATININE 0.89 MG/DL (0.70-1.30); GFR AFRICAN AMERICAN 103 ML/MIN (>=60); GFR NON AFRICAN AMERICAN 88 ML/MIN (>=60); SODIUM, SERUM 139 MMOL/L (135-148)
[2017-08-09 04:38] LABS: CO2 (CARBON DIOXIDE) 34 MMOL/L (24-34); GLUCOSE, SERUM 126 MG/DL (60-99)
[2017-08-09 06:27] LABS: MANUAL DIFF YES %; MEAN CORPUS HGB CONC 34.8 g/dL (32.0-36.0); MEAN PLATELET VOLUME 9.8 fL (9.2-13.0); PLATELET COUNT 285 10/3/uL (150-400); RBC DISTRIBUTION WIDTH 13.3 % (12.0-16.0); RED CELL COUNT 3.21 10/6/uL (4.7-6.1); WHITE BLOOD CELLS 9.3 10/3/uL (4.5-10.5)
[2017-08-09 06:51] LABS: BAND NEUTROPHILS 17 %; IMMATURE GRANS ABSOLUTE (CALC) 0.09 10/3/uL (0.0-0.11); LYMPHOCYTES 4 %; LYMPHOCYTES ABSOLUTE (CALC) 0.37 10/3/uL (0.67-4.30); METAMYELOCYTES 1 %; MONOCYTES 9 %; MONOCYTES ABSOLUTE (CALC) 0.84 10/3/uL (0.21-1.20); PLATELET ESTIMATE ADQ (ADEQUATE); RBC MORPHOLOGY NORM (NORMAL); SEGMENTED NEUTROPHIL (0) 69 %; TOTAL NUCLEATED CELLS 100
[2017-08-10 06:51] LABS: RETICULOCYTE COUNT 4.2 % (0.5-2.5); RETICULOCYTE COUNT ABSOLUTE 141.3 10/3/uL (20.2-119.8)
[2017-08-10 07:17] LABS: BUN (BLOOD UREA NITROGEN) 17 MG/DL (6-23); CALCIUM, SERUM 9.3 MG/DL (8.5-10.4); CHLORIDE, SERUM 100 MMOL/L (96-112); CO2 (CARBON DIOXIDE) 32 MMOL/L (24-34); CREATININE 0.93 MG/DL (0.70-1.30); FERRITIN 520 NG/ML (26-388); GFR AFRICAN AMERICAN 98 ML/MIN (>=60); GFR NON AFRICAN AMERICAN 85 ML/MIN (>=60); GLUCOSE, SERUM 104 MG/DL (60-99); IRON BINDING CAPACITY 220 MCG/DL (250-450); IRON, SERUM 63 MCG/DL (35-150); POTASSIUM, SERUM 4.1 MMOL/L (3.5-5.3); SODIUM, SERUM 138 MMOL/L (135-148)
[2017-08-11] MEDS ORDERED: ELIQUIS 5 MG TAB5 MG PO (18:30)
[2017-08-11] MEDS ORDERED: LIPITOR40 PO (18:32)
[2017-08-11] MEDS ORDERED: CORDARONE PO (18:33)
[2017-08-11] MEDS ORDERED: CEFAZ1 IM (18:35)
[2017-08-11] MEDS ORDERED: MUCINEX600 MG PO (18:36)
[2017-08-11] MEDS ORDERED: MAGOX4 PO (18:41)
[2017-08-11] MEDS ORDERED: THERGRANM PO (18:42)
[2017-08-11] MEDS ORDERED: TOPXL50 PO (18:43)
[2017-08-11] MEDS ORDERED: KLOR-CON M2020 MEQ PO (18:44)
[2017-08-11] MEDS ORDERED: DEMA20 PO (18:45)
[2017-08-11] MEDS ORDERED: SPIRIVA INH (18:45)
[2017-08-11] MEDS ORDERED: SYMBICORT 160/41 INH INH (18:48)
[2017-08-11] MEDS ORDERED: VENTOLIN HFA INH (18:49)
[2017-08-11] MEDS ORDERED: P10 PO ×5 (18:53→18:59)
[2017-08-12] MEDS ORDERED: KLOR-CON M2020 MEQ PO (09:15)
[2017-08-12] MEDS ORDERED: P10 PO (09:19)
== END 2017-08-12 14:25 | disposition home health service (06) | DRG 871 ==
LOC: ENRESERV → ENRESERVTM → ENRESERVDT → IMCU 08-03 00:16 → 7NO 08-03 00:16
PROVIDERS: Anesthesiology; Internal Medicine; Internal Medicine Pulmonary Disease; Nurse Practitioner Family
PROC: 02HV33Z Insertion of Infusion Device into Superior Vena Cava, Percutaneous Approach (ICD-10-PCS; 2017-08-03)
PROC: 4A023N7 Measurement of Cardiac Sampling and Pressure, Left Heart, Percutaneous Approach (ICD-10-PCS; principal; 2017-08-07)
PROC: B2111ZZ Fluoroscopy of Multiple Coronary Arteries using Low Osmolar Contrast (ICD-10-PCS; 2017-08-07)
PROC: B2151ZZ Fluoroscopy of Left Heart using Low Osmolar Contrast (ICD-10-PCS; 2017-08-07)
DX: A41.1 Sepsis due to other specified staphylococcus (principal); R65.21 Severe sepsis with septic shock; I21.4 Non-ST elevation (NSTEMI) myocardial infarction; I33.0 Acute and subacute infective endocarditis; N17.9 Acute kidney failure, unspecified; G93.41 Metabolic encephalopathy; E87.1 Hypo-osmolality and hyponatremia; N18.3 Chronic kidney disease, stage 3 (moderate); D69.6 Thrombocytopenia, unspecified; J44.1 Chronic obstructive pulmonary disease with (acute) exacerbation; E03.9 Hypothyroidism, unspecified; I48.0 Paroxysmal atrial fibrillation; E87.6 Hypokalemia; D64.9 Anemia, unspecified; I25.10 Atherosclerotic heart disease of native coronary artery without angina pectoris; B95.7 Other staphylococcus as the cause of diseases classified elsewhere; K80.20 Calculus of gallbladder without cholecystitis without obstruction; I12.9 Hypertensive chronic kidney disease with stage 1 through stage 4 chronic kidney disease, or unspecified chronic kidney disease
CPT/HCPCS: 36569; 36600; 70552; 71010; 71020; 71250; 80048; 80053; 80061; 81001; 82330; 82533; 82728; 82805; 82962; 83036; 83540; 83550; 83605; 83735; 84100; 84132; 84145; 84443; 84484; 85025; 85045; 85610; 85652; 85730; 86140; 87040; 87449; 87641; 93005; 93306; 93312; 93320; 93325; 93458; 93880; 94640; 99152; A9270-GY; A9577; C1751; C1769; C1887; C1894; J0282; J0690; J0692; J1720; J1940; J2250; J3010; J3260; J3370; Q9967